=== PATIENT | male | born 1945 | race Caucasian/White ===

== ENCOUNTER 2022-01-08 12:01 | Emergency (ER) | payer MEDICARE ==
[2022-01-08 12:37] LABS: #Basophils 0.1 thou/uL (0.0-0.2); #Eosinphils 0.2 thou/uL (0.0-0.7); #Lymphocytes 1.6 thou/uL (1.20-3.40); #Monocytes 0.7 thou/uL (0.11-0.59); %Basophils 0.8 % (0.0-1.0); %Eosinophils 2.1 % (0.0-10.0); %Lymphocytes 15.4 % (21.0-51.0); %Monocytes 6.5 % (0.0-10.0); %Neutrophils 75.2 % (42.0-75.0); Hemoglobin 13.9 g/dL (14.0-18.0); Mean Corpuscular HGB CONC 33.4 g/dL (32.0-36.0); Mean Corpuscular Hemoglobin 31.5 pg (27.0-31.0); Mean Corpuscular Volume 94.3 fl (78.0-98.0); Platelet Count 191 thou/uL (130-400); RBC Distribution Width 11.9 % (11.5-14.5); Red Blood Cell (RBC) Count 4.43 mill/uL (4.70-6.10); White Blood Cell (WBC) Count 10.6 thou/uL (4.8-10.8)
[2022-01-08 12:55] LABS: Anion Gap 15 mmol/L (10-20); BUN (Urea Nitrogen) 18 mg/dL (8.4-25.7); Calc. Creatinine Clearance 0 mL/min (70-130); Carbon Dioxide 25 mmol/L (23-31); Chloride 101 mmol/L (98-107); Estimated GFR 73; Glucose 148 mg/dL (83-110); Lipase 17 U/L (8-78); Potassium 3.7 mmol/L (3.5-5.1); Sodium 137 mmol/L (136-145)
[2022-01-08 14:05] LABS: ALT (SGPT) 14 U/L (8-55); AST (SGOT) 16 U/L (5-34); Alkaline Phosphatase 76 U/L (40-110); Bilirubin, Direct 0.2 mg/dL (0.1-0.3); Bilirubin, Total 0.6 mg/dL (0.2-1.2); Protein, Total 6.6 g/dL (5.8-8.1)
[2022-01-08] MEDS ORDERED: Iopamidol 370 76% 100 ML VIAL ONE (14:12)
[2022-01-08] MEDS ORDERED: Piperacillin/Tazobactam 4.5 GM VIAL ONE (14:18)
[2022-01-08] MEDS ORDERED: Sodium Chloride 0.9% 100 ML ONE (14:18)
[2022-01-08] MEDS ORDERED: Thiamine HCl 200 MG/2 ML VIAL ONE (14:19)
[2022-01-08 15:05] LABS: SARS-CoV-2 NAA Rapid Test Not Detected (NotDetected)
== END 2022-01-08 15:26 | disposition short-term general hospital (02) ==
LOC: BURERS 12:01
DX: K35.80 Unspecified acute appendicitis (principal); I10 Essential (primary) hypertension; Z20.822 Contact with and (suspected) exposure to COVID-19
CPT/HCPCS: 74177; 80048; 80076; 83690; 85025; U0002; 96365; 96375; J2543; J3411; J3490; Q9967

== ENCOUNTER 2022-07-06 16:03 | Emergency (ER) | payer MEDICARE ==
[~2022-07-06 16:03] MED LIST: Iopamidol 370 76% 100 ML VIAL ONE
[2022-07-06 16:26] LABS: #Basophils 0.1 thou/uL (0.0-0.2); #Eosinphils 0.3 thou/uL (0.0-0.7); #Lymphocytes 2.2 thou/uL (1.20-3.40); #Monocytes 0.9 thou/uL (0.11-0.59); #Neutrophils 6.5 thou/uL (1.40-6.50); %Basophils 0.9 % (0.0-1.0); %Eosinophils 3.2 % (0.0-10.0); %Lymphocytes 21.9 % (21.0-51.0); %Monocytes 8.9 % (0.0-10.0); %Neutrophils 65.2 % (42.0-75.0); Hemoglobin 14.5 g/dL (14.0-18.0); Mean Corpuscular HGB CONC 32.6 g/dL (32.0-36.0); Mean Corpuscular Hemoglobin 30.7 pg (27.0-31.0); Mean Corpuscular Volume 94.1 fl (78.0-98.0); Mean Platelet Volume 6.3 fL (7.4-10.4); Platelet Count 190 10x3/uL (130-400); RBC Distribution Width 12.3 % (11.5-14.5)
[2022-07-06 16:41] LABS: ALT (SGPT) 14 U/L (8-55); AST (SGOT) 19 U/L (5-34); Albumin 4.2 g/dL (3.4-4.8); Alkaline Phosphatase 83 U/L (40-110); Anion Gap 15 mmol/L (10-20); BUN (Urea Nitrogen) 19 mg/dL (8.4-25.7); Bilirubin, Total 0.4 mg/dL (0.2-1.2); Calc. Creatinine Clearance 0 mL/min (70-130); Calcium 9.1 mg/dL (7.8-10.44); Carbon Dioxide 22 mmol/L (23-31); Chloride 105 mmol/L (98-107); Estimated GFR 63; Globulin 2.8 g/dL (2.4-3.5); Glucose 99 mg/dL (83-110); Lipase 20 U/L (8-78); Potassium 3.9 mmol/L (3.5-5.1); Sodium 138 mmol/L (136-145)
[2022-07-06 18:55] LABS: Troponin I 0.012 ng/mL (< 0.028)
== END 2022-07-06 19:15 | disposition home or self-care (01) ==
LOC: BURERS 16:03
DX: I47.1 Supraventricular tachycardia (principal); E66.01 Morbid (severe) obesity due to excess calories; I10 Essential (primary) hypertension
CPT/HCPCS: 36415; 71045; 71275; 80053; 83605; 83690; 83735; 83880; 84484; 85025; 85379; 93005; Q9967